=== PATIENT | male | born 1945 | race Caucasian/White ===

== ENCOUNTER → 2021-03-25 09:37 | Outpatient (CLI) | payer MEDICARE, OTHER, SELFPAY ==
[2021-03-25 10:26] LABS: COVID19 -Nasal RAPID Negative (Negative)
== END ==
PROVIDERS: Referring Provider Student in an Organized Health Care Education/Training Program; Visit Provider Student in an Organized Health Care Education/Training Program
DX: Z20.822 Contact with and (suspected) exposure to COVID-19 (principal)
CPT/HCPCS: 87635

== ENCOUNTER → 2022-01-22 11:32 | Outpatient (CLI) | payer MEDICARE, OTHER, SELFPAY ==
--- NOTE | 2022-01-22 11:35 | DI.RAD.S_ITS ---
PROCEDURE: XR CHEST 2V INDICATIONS: chest heaviness TECHNIQUE: 2 views of the chest were acquired. COMPARISON: None. FINDINGS: Surgical changes and devices: None. Lungs and pleura: Lungs are clear. No pleural effusions or pneumothorax. Mediastinum: Mediastinal contours are normal. Heart size is normal. Bones and chest wall: No suspicious bony abnormalities. Soft tissues appear unremarkable. IMPRESSION: No evidence for active disease in the chest. Dictated by: Jin Muniz M.D. on 01/22/2022 at 12:03 Approved by: Jin Muniz M.D. on 01/22/2022 at 12:03
== END ==
PROVIDERS: Referring Provider Registered Nurse; Visit Provider Registered Nurse
DX: R05.9 Cough, unspecified (principal)
CPT/HCPCS: 71046

== ENCOUNTER → 2023-02-23 10:51 | Outpatient (CLI) | payer MEDICARE, OTHER, SELFPAY | PROVIDERS: Visit Provider Physician Assistant | DX: R30.0 Dysuria (principal) | CPT/HCPCS: 87077; 87086; 87186 ==

== ENCOUNTER 2024-11-27 10:29 | Emergency (ER) | payer MEDICARE, OTHER, SELFPAY ==
[2024-11-27] VITALS (8 sets, daily range): BP systolic 146–186; BP diastolic 71–84; PULSE 62–72; RESP 12–19; TEMP 36.6; O2SAT 95–98; BMI 28.7
--- NOTE | 2024-11-27 10:42 | DI.CT.S_ITS ---
PROCEDURE: CT STROKE INDICATIONS: left sided numbness on Xarelto TECHNIQUE: Noncontrast 4.5 mm thick angled axial sections acquired from the foramen magnum to the vertex, with coronal reformats. For radiation dose reduction, the following was used: automated exposure control, adjustment of mA and/or kV according to patient size. COMPARISON: None. FINDINGS: Image quality: Diagnostic. CSF spaces: Basal cisterns are patent. No extra-axial fluid collections. The ventricles are symmetric in size and shape. Brain: No intracranial bleeds or mass effect. There is cerebral volume loss, with resultant ventricular and sulcal prominence. There are periventricular and deep white matter chronic small vessel ischemic changes. There is intracranial internal carotid artery atherosclerosis. Skull and face: Calvarium and visualized facial bones appear intact, without suspicious lesions. Sinuses: Visualized sinuses and mastoids are clear. IMPRESSION: No acute intracranial pathology. Comment: Findings were discussed with Dr. Le on 11/27/2024 at 1057 hours This study fulfills neurological imaging criteria for inclusion or exclusion of acute stroke therapies based on available published neurological guidelines. Dictated by: Onur Odom M.D. on 11/27/2024 at 10:55 Approved by: Onur Odom M.D. on 11/27/2024 at 10:58
--- NOTE | 2024-11-27 10:42 | EKG_ITS ---
[place] [id number] [place] [id number] Test Date: 2024-11-27 Pat Name: Paulie Kan Department: [facility] Room: Gender: Male Communications Department Chair: RADHA : 1945 Requested By: Order Number: [id number] Reading MD: Ja Beltran MD Measurements Intervals [place] Rate: 72 P: 123 PA: 282 QRS: 10 QRSD: 136 T: 268 QT: 444 QTc: 486 Interpretive Statements Unusual P axis, possible ectopic atrial rhythm with undetermined rhythm irregularity Right bundle branch block Minimal voltage criteria for LVH, may be normal variant ( Sokolow-Marion ) T wave abnormality, consider inferolateral ischemia NO PRIOR TRACING Electronically Signed On 11-27-2024 15:07:53 PDT by Ja Beltran MD
--- NOTE | 2024-11-27 10:42 | DI.CT.S_ITS ---
PROCEDURE: CT ANGIO HEAD AND NECK INDICATIONS: left sided numbness on Xarelto TECHNIQUE: After the administration of intravenous contrast, 1 mm thick sections acquired from the aortic arch through the [place]. 3-dimensional klvbggp-ajrsfktjh-ajnwmphlbh (MIP) and/or volume rendering reformats were acquired of the central intracranial vasculature and neck separately. For radiation dose reduction, the following was used: automated exposure control, adjustment of mA and/or kV according to patient size. COMPARISON: None. FINDINGS: Image quality: Diagnostic. Cerebral CT Angiogram: Internal carotid arteries: No acute findings. Intracranial ICA are patent with no significant stenosis. Mild chronic calcification of the distal left cervical segment. No occlusion. No aneurysm. Anterior cerebral arteries: Hypoplastic right A1 segment, normal variant. A2 arises from the left. No significant stenosis. No occlusion. No aneurysm. Middle cerebral arteries: Unremarkable. No significant stenosis. No occlusion. No aneurysm. Posterior cerebral arteries: Hypoplastic right P1 segment. P2 arises from the right posterior communicating artery, normal variant. No significant stenosis. No occlusion. No aneurysm. Basilar artery: Unremarkable. No significant stenosis. No occlusion. No aneurysm. Vertebral arteries: Unremarkable as visualized. Dural venous sinuses: Unremarkable given phase of enhancement. Other: Arterial phase appearance of the brain parenchyma is unremarkable. Neck CT Angiogram: Internal carotid arteries: Tortuous distal internal carotid artery courses bilaterally. Rzal-oi-imxzhwlt mixed calcified and noncalcified plaque at bilateral carotid bulbs and bilateral ICA origins. Noncalcified narrowing of the mid segment of the right ICA near a focus of tortuosity. This is estimated to be less than 50%. Common carotid arteries: Mild calcified narrowing at the common carotid artery origins, left slightly greater than right without measurable stenosis. No dissection or occlusion. External carotid arteries: Unremarkable. No occlusion. Vertebral arteries: Unremarkable. No significant stenosis. No dissection or occlusion. Aortic Arch and Mediastinum: Partially visualized aortic arch unremarkable without evidence of aneurysm. Moderate calcification. Other: Arterial phase soft tissues of the neck and chest are unremarkable. IMPRESSION: No significant intracranial arterial abnormality is seen. No significant abnormality is seen within the arteries of the neck. Fqgb-fd-jmmhoimz atherosclerotic plaque at the bilateral ICA origins and noncalcified possible narrowing of the mid right ICA segment. Any quantitative measurements of stenosis were performed using NASCET criteria. Dictated by: Emerita Rushing M.D. on 11/27/2024 at 11:13 Approved by: Emerita Rushing M.D. on 11/27/2024 at 11:25
--- NOTE | 2024-11-27 10:50 | ED.NEUROSD ---
HPI - Neuro Symptoms/Deficit General Chief Complaint: Neuro Symptoms/Deficit Stated Complaint: Left arm and left leg numbness 1 hour ago Time Seen by Provider: 11/27/24 10:41 History of Present Illness HPI Narrative: Patient is a 79-year-old male history of atrial fibrillation on Xarelto prior stroke in 2013 presenting today with left-sided numbness. Last known well was at about sign 30. He woke up and came in from outside and just felt like left arm leg and face were numb. No significant weakness. says that his stroke he actually had facial droop difficulty speaking and actual weakness. He denies any chest pain palpitations or other symptoms. He reports that symptoms have completely resolved at this time. He also states symptoms only lasted 5 minutes and he is currently back to his normal self Related Data Home Medications ?Medication ?Instructions ?Recorded ?Confirmed rivaroxaban 20 mg tablet (Xarelto) 20 mg PO DAILY 03/25/21 11/27/24 atorvastatin PO 11/07/21 11/27/24 losartan PO 11/07/21 11/27/24 metoprolol succinate PO 11/07/21 11/27/24 omeprazole PO 11/07/21 11/27/24 Previous Rx's ?Medication ?Instructions ?Recorded benzonatate 200 mg capsule 200 mg PO BID PRN cough #28 caps 05/21/23 fluticasone propionate 50 1 spray intranasal Q12H #16 grams 05/21/23 mcg/actuation nasal spray,suspension (Flonase Allergy Relief) Allergies Allergy/AdvReac Type Severity Reaction Status Date / Time No Known Drug Allergies Allergy Verified 11/27/24 10:34 Patient History Social History Smoking Status: Former smoker Exam Initial Vital Signs Initial Vital Signs: Vital Signs Temperature 97.9 F 11/27/24 10:30 Pulse Rate 72 11/27/24 10:30 Respiratory Rate 18 11/27/24 10:30 Blood Pressure 186/82 H 11/27/24 10:30 Pulse Oximetry 95 11/27/24 10:30 Oxygen Delivery Method Room Air 11/27/24 10:30 GENERAL: Alert well-appearing 79-year-old male and in no acute distress. HEENT: Head atraumatic,EOMI, pupils reactive, face symmetric, moist mucous membranes CARDIOVASCULAR: Irregular no murmur RESPIRATORY: Breath sounds equal bilaterally, no wheezes rales or rhonchi. ABDOMEN: Soft, nontender. Normoactive bowel sounds all 4 quadrants. No guarding or rebound. EXTREMITIES: Normal range of motion, no clubbing or edema. Neurovascularly intact NEUROLOGICAL: Alert and oriented x4.Normal gait and speech. Cranial nerves II through XII grossly intact. Good xrqayg-uw-afit, good pnbl-az-tjfn, strength equal bilaterally, no dysarthria or aphasia, sensation in tact to soft touch bilaterally, no visual changes, no facial droop SKIN: Warm, dry, no laceration, no petechiae, no rashes or lesions. Scores NIH Stroke Scale Level of Conciousness: Alert, keenly responsive Ask month/age: Answers both questions correctly. Open/close eyes, close hand: Performs both tasks correctly Best gaze horizontal: Normal Visual llamas: No visual loss Facial palsy: Normal symetrical movement Left arm drift: No drift for full 10 sec Right arm drift: No drift for full 10 sec Left leg drift: No drift for full 5 sec Right leg drift: No drift for full 5 sec Limb ataxia: Absent Sensory on face/arms/legs: Normal, no sensory loss Best language: No aphasia, normal Dysarthria: Normal Extinction or inattention: No abnormality Total NIH Stroke scale score: 0 Course Orders Ordered: ED Orders 11/27/24 10:[address] angio head and neck Stat Comprehensive Metabolic Panel Stat Ethanol (ETOH) Stat Troponin & CK Cardiac Panel Stat EKG-12 Lead Stat 11/27/24 10:45 Complete Blood Count AUTO DIFF Stat PTT Partial Thromboplastin Mo Stat Prothrombin Time INR Stat 11/27/24 11:40 COVID19 -Nasal RAPID Stat Urinalysis and Microscopic Stat Urine Drug Screen, Rapid Stat 11/27/24 11:58 MR head/brain wo con Stat Vital Signs Vital signs: Vital Signs - 8 hr 11/27/24 10:30 11/27/24 10:59 11/27/24 11:00 Temperature 97.9 F Pulse Rate 72 67 Respiratory Rate 18 12 Blood Pressure 186/82 H 175/84 H Pulse Oximetry 95 97 Oxygen Delivery Method Room Air 11/27/24 11:00 11/27/24 11:08 11/27/24 11:30 Temperature Pulse Rate 68 64 66 Respiratory Rate 12 16 19 Blood Pressure Pulse Oximetry 97 96 Oxygen Delivery Method 11/27/24 11:30 11/27/24 11:42 11/27/24 11:42 Temperature Pulse Rate 62 Respiratory Rate 18 Blood Pressure 146/79 H 179/77 H Pulse Oximetry 98 Oxygen Delivery Method 11/27/24 12:00 11/27/24 12:01 11/27/24 12:01 Temperature Pulse Rate 63 63 Respiratory Rate 17 19 Blood Pressure 151/71 H Pulse Oximetry 96 97 Oxygen Delivery Method MDM - Neuro Symptoms/Deficit Lab Data 11/27/24 10:45 11/27/24 10:42 Labs: Lab Results 11/27/24 11/27/24 11/27/24 Range/Units 10:42 10:45 11:40 WBC 5.4 (4.5-11.0) X10^3/uL RBC 4.94 (4.5-5.9) X10^6/uL Hgb 14.5 (13.5-17.5) g/dL Hct 42.5 (41-53) % MCV 86.0 (80-100) fL MCH 29.3 (26-34) PG MCHC 34.1 (30-36) % RDW 14.9 H (11.6-14.8) % Plt Count 209 (150-400) X10^3/uL Neut % (Auto) 72.7 (50-75) % Lymph % (Auto) 13.0 L (25-40) % [place] % (Auto) 11.5 (3-14) % Eos % (Auto) 2.1 (2-4) % Baso % (Auto) 0.7 (0-2) % Neut # (Auto) 4000 (2625-0194) /uL Lymph # (Auto) 700 L (0788-3381) /uL [place] # (Auto) 600 (0-900) /uL Eos # (Auto) 100 (0-450) /uL Baso # (Auto) 0 (0-100) /uL PT 20.2 H (9.4-12.5) SECONDS INR 1.8 H (0.9-1.3) APTT 37 H (25.1-36.5) SECONDS Sodium 139 (137-145) mmol/L Potassium 3.9 (3.4-5.1) mmol/L Chloride 101 (98-107) mmol/L Carbon Dioxide 26 (22-32) mmol/L BUN 13 (9-20) mg/dL Creatinine 0.89 (0.66-1.25) mg/dL Estimated GFR > 60 (>60) mL/min BUN/Creatinine Ratio 14.6 (6-22) Glucose 102 H (70-99) mg/dL POC Whole Bld Glucose 96 (70-99) mg/dL Calcium 9.3 (8.4-10.2) mg/dL Total Bilirubin 1.1 (0.2-1.3) mg/dL AST 28 (17-59) IU/L ALT 20 (<50) IU/L Alkaline Phosphatase 58 (38-126) U/L Total Creatine Kinase 36 L (55-170) U/L Troponin I < 0.012 (0.01-0.034) ng/mL Total Protein 8.0 (6.3-8.2) g/dL Albumin 4.6 (3.5-5.0) g/dL Globulin 3.4 (1.7-4.1) g/dL Albumin/Globulin Ratio 1.4 (1.0-2.8) Urine Color Yellow Urine Appearance Clear Urine pH 5.5 (4.5-8.0) Ur Specific [place] <=1.005 (1.000-1.035) Urine Protein Negative (Negative) Urine Glucose (UA) 2+ H (Negative) g/dL Urine Ketones Negative (NEGATIVE) Urine Occult Blood Negative (Negative) Urine Nitrate Negative (Negative) Urine Bilirubin Negative (NEGATIVE) Urine Urobilinogen 0.2 (0.2) E.U./dL Ur Leukocyte Esterase Negative (NEGATIVE) Urine RBC None seen (0-5/HPF) Urine WBC None seen (0-5/HPF) Ur Squamous Epith Cells None seen (0-5/HPF) Urine Bacteria None seen (None) Ur Culture Indicated? Cult not indicated Vol Urine Centrifuged 10ml (spun) U Opiates 300ng/mL cut Negative (Negative) Ur Oxycodone Screen Negative (Negative) Urine Methadone Screen Negative (Negative) Ur Barbiturates Screen Negative (Negative) U Tricyclic Antidepress Negative (Negative) Ur Phencyclidine Scrn Negative (Negative) Ur Amphetamines Screen Negative (Negative) U Methamphetamines Scrn Negative (Negative) Ur MDMA Scrn (Ecstasy) Negative (Negative) U Benzodiazepines Scrn Negative (Negative) Urine Cocaine Screen Negative (Negative) U Marijuana (THC) Screen Negative (Negative) Urine Specific [place] (Normal) Ethyl Alcohol < 10 (<10) mg/dL Ur Creatinine (Normal) SARS-CoV-2 (PCR) (Negative) 11/27/24 Range/Units 11:40 WBC (4.5-11.0) X10^3/uL RBC (4.5-5.9) X10^6/uL Hgb (13.5-17.5) g/dL Hct (41-53) % MCV (80-100) fL MCH (26-34) PG MCHC (30-36) % RDW (11.6-14.8) % Plt Count (150-400) X10^3/uL Neut % (Auto) (50-75) % Lymph % (Auto) (25-40) % [place] % (Auto) (3-14) % Eos % (Auto) (2-4) % Baso % (Auto) (0-2) % Neut # (Auto) (5829-3663) /uL Lymph # (Auto) (4137-8955) /uL [place] # (Auto) (0-900) /uL Eos # (Auto) (0-450) /uL Baso # (Auto) (0-100) /uL PT (9.4-12.5) SECONDS INR (0.9-1.3) APTT (25.1-36.5) SECONDS Sodium (137-145) mmol/L Potassium (3.4-5.1) mmol/L Chloride (98-107) mmol/L Carbon Dioxide (22-32) mmol/L BUN (9-20) mg/dL Creatinine (0.66-1.25) mg/dL Estimated GFR (>60) mL/min BUN/Creatinine Ratio (6-22) Glucose (70-99) mg/dL POC Whole Bld Glucose (70-99) mg/dL Calcium (8.4-10.2) mg/dL Total Bilirubin (0.2-1.3) mg/dL AST (17-59) IU/L ALT (<50) IU/L Alkaline Phosphatase (38-126) U/L Total Creatine Kinase (55-170) U/L Troponin I (0.01-0.034) ng/mL Total Protein (6.3-8.2) g/dL Albumin (3.5-5.0) g/dL Globulin (1.7-4.1) g/dL Albumin/Globulin Ratio (1.0-2.8) Urine Color Urine Appearance Urine pH Normal (4.5-8.0) Ur Specific [place] (1.000-1.035) Urine Protein (Negative) Urine Glucose (UA) (Negative) g/dL Urine Ketones (NEGATIVE) Urine Occult Blood (Negative) Urine Nitrate (Negative) Urine Bilirubin (NEGATIVE) Urine Urobilinogen (0.2) E.U./dL Ur Leukocyte Esterase (NEGATIVE) Urine RBC (0-5/HPF) Urine WBC (0-5/HPF) Ur Squamous Epith Cells (0-5/HPF) Urine Bacteria (None) Ur Culture Indicated? Vol Urine Centrifuged U Opiates 300ng/mL cut (Negative) Ur Oxycodone Screen (Negative) Urine Methadone Screen (Negative) Ur Barbiturates Screen (Negative) U Tricyclic Antidepress (Negative) Ur Phencyclidine Scrn (Negative) Ur Amphetamines Screen (Negative) U Methamphetamines Scrn (Negative) Ur MDMA Scrn (Ecstasy) (Negative) U Benzodiazepines Scrn (Negative) Urine Cocaine Screen (Negative) U Marijuana (THC) Screen (Negative) Urine Specific [place] Normal (Normal) Ethyl Alcohol (<10) mg/dL Ur Creatinine Normal (Normal) SARS-CoV-2 (PCR) Negative (Negative) Point of Care Testing Glucose POC [address] scan - head: Radiologist's Impression: PROCEDURE: CT STROKE INDICATIONS: left sided numbness on Xarelto TECHNIQUE: Noncontrast 4.5 mm thick angled axial sections acquired from the foramen magnum to the vertex, with coronal reformats. For radiation dose reduction, the following was used: automated exposure control, adjustment of mA and/or kV according to patient size. COMPARISON: None. FINDINGS: Image quality: Diagnostic. CSF spaces: Basal cisterns are patent. No extra-axial fluid collections. The ventricles are symmetric in size and shape. Brain: No intracranial bleeds or mass effect. There is cerebral volume loss, with resultant ventricular and sulcal prominence. There are periventricular and deep white matter chronic small vessel ischemic changes. There is intracranial internal carotid artery atherosclerosis. Skull and face: Calvarium and visualized facial bones appear intact, without suspicious lesions. Sinuses: Visualized sinuses and mastoids are clear. IMPRESSION: No acute intracranial pathology. Comment: Findings were discussed with Dr. Le on 11/27/2024 at 1057 hours This study fulfills neurological imaging criteria for inclusion or exclusion of acute stroke therapies based on available published neurological guidelines. Dictated by: Onur Odom M.D. on 11/27/2024 at 10:55 CTA - brain/neck: Radiologist's Impression: PROCEDURE: CT ANGIO HEAD AND NECK INDICATIONS: left sided numbness on Xarelto TECHNIQUE: After the administration of intravenous contrast, 1 mm thick sections acquired from the aortic arch through the [place]. 3-dimensional xieaefz-hlmlgnufe-gwlrbbnyia (MIP) and/or volume rendering reformats were acquired of the central intracranial vasculature and neck separately. For radiation dose reduction, the following was used: automated exposure control, adjustment of mA and/or kV according to patient size. COMPARISON: None. FINDINGS: Image quality: Diagnostic. Cerebral CT Angiogram: Internal carotid arteries: No acute findings. Intracranial ICA are patent with no significant stenosis. Mild chronic calcification of the distal left cervical segment. No occlusion. No aneurysm. Anterior cerebral arteries: Hypoplastic right A1 segment, normal variant. A2 arises from the left. No significant stenosis. No occlusion. No aneurysm. Middle cerebral arteries: Unremarkable. No significant stenosis. No occlusion. No aneurysm. Posterior cerebral arteries: Hypoplastic right P1 segment. P2 arises from the right posterior communicating artery, normal variant. No significant stenosis. No occlusion. No aneurysm. Basilar artery: Unremarkable. No significant stenosis. No occlusion. No aneurysm. Vertebral arteries: Unremarkable as visualized. Dural venous sinuses: Unremarkable given phase of enhancement. Other: Arterial phase appearance of the brain parenchyma is unremarkable. Neck CT Angiogram: Internal carotid arteries: Tortuous distal internal carotid artery courses bilaterally. Vmqf-zu-rqaljwhl mixed calcified and noncalcified plaque at bilateral carotid bulbs and bilateral ICA origins. Noncalcified narrowing of the mid segment of the right ICA near a focus of tortuosity. This is estimated to be less than 50%. Common carotid arteries: Mild calcified narrowing at the common carotid artery origins, left slightly greater than right without measurable stenosis. No dissection or occlusion. External carotid arteries: Unremarkable. No occlusion. Vertebral arteries: Unremarkable. No significant stenosis. No dissection or occlusion. Aortic Arch and Mediastinum: Partially visualized aortic arch unremarkable without evidence of aneurysm. Moderate calcification. Other: Arterial phase soft tissues of the neck and chest are unremarkable. IMPRESSION: No significant intracranial arterial abnormality is seen. No significant abnormality is seen within the arteries of the neck. Biya-iw-gqdjdxan atherosclerotic plaque at the bilateral ICA origins and noncalcified possible narrowing of the mid right ICA segment. Any quantitative measurements of stenosis were performed using NASCET criteria. Dictated by: Emerita Rushing M.D. on 11/27/2024 at 11:13 Approved by: Emerita Rushing M.D. on 11/27/2024 at 11:25 MR brain: Radiologist's Impression: PROCEDURE: MR HEAD/BRAIN WO CON INDICATIONS: left side numbness now resolved prior cva TECHNIQUE: Non-contrast axial T1 spin echo, axial T2 fast spin echo, sagittal and axial FLAIR, coronal T2 fast spin echo, axial gradient echo, axial diffusion and ADC through the brain. COMPARISON: [facility], CT, CT ANGIO HEAD AND NECK, 11/27/2024, 10:51. [facility], CT, CT STROKE, 11/27/2024, 10:51. FINDINGS: Image quality: Excellent. CSF spaces: Ventricles appear symmetric in size and shape. Basal cisterns are patent. No extra-axial fluid collections. Brain: No intracranial bleeds or mass effects. There is cerebral volume loss for age. There are mild, age-appropriate periventricular and deep white matter chronic small vessel ischemic changes. Brainstem appears normal. Diffusion-weighted images show no acute infarct. No chronic ischemic insults. Normal intravascular flow voids are present. Skull and face: Calvarial bone marrow is normal in signal. Orbits are normal. Sinuses: Sinuses and mastoids are clear. IMPRESSION: No acute intracranial process. Normal brain parenchyma for patient age. Dictated by: Onur Odom M.D. on 11/27/2024 at 13:37 ECG Data Attestation: I personally reviewed and interpreted this ECG as follows: Interpretation: Atrial fibrillation rhythm rate 72 UT interval 282 QRS 136 QTC 46 artifact noted right bundle-branch block MDM Narrative Medical decision making narrative: MDM CC: Left sided numbness Complicating co-morbidities: Atrial fibrillation on Xarelto, prior CVA no deficits Data collected from: and patient Medical records reviewed: Urgent care walk-in clinic records reviewed Differential considered: Intracranial hemorrhage CVA TIA Exam documented above, pertinent findings include: NIH is 0 awake alert appropriate irregular rhythm Lab Test results independently reviewed as above. Pertinent findings: CBC no leukocytosis no anemia No electrolyte abnormality Troponin negative Urinalysis negative Independently reviewed EKG as above Atrial fibrillation rate control Imaging studies independently reviewed: Head CT no intracranial hemorrhage CT angio no large vessel occlusion MRI no acute CVA Consultations: None Treatments: None Re-evaluations: Patient has recurrence of symptoms Discussion: Patient 79-year-old male history of CVA AFib on Xarelto presenting today with 5 minutes of left-sided numbness. He has an NIH of 0 workup in the emergency department is negative MRIs negative for acute CVA no intracranial hemorrhage in blood work is within normal limits. Discussion with patient about admission for further evaluation which he declined at this time. We did discuss that he is at higher risk for larger stroke and to return to the ED immediately if she should have any worsening or new symptoms which both he and his verbally agreed to. At this time patient would like to go which seems reasonable Discharge Plan Departure Patient Disposition: Home Clinical Impression: Numbness Instructions: DI for Transient Ischemic Attack Activity Restrictions/Additional Instructions: *You have been diagnosed with numbness possible TIA *What to do: At this time it is still possible that you had mild stroke. I do strongly recommend he follow up with your primary care provider as soon as possible. If you should have worsening symptoms or return of symptoms please return to the ER immediately for evaluation *Continue to take medications as directed *Follow up with your primary care provider in 2-3 days or call [phone] *Return to ER if you should have increasing weakness numbness tingling difficulty speaking [or] any new, worsening or concerning symptoms Prescriptions: No Action Xarelto 20 mg tablet 20 mg PO DAILY Rx Instructions: must administer with evening meal atorvastatin PO losartan PO metoprolol succinate PO omeprazole PO fluticasone propionate [Flonase Allergy Relief] 50 mcg/actuation spray,suspension 1 spray intranasal Q12H Qty: 16 0RF Rx Instructions: administer into each nostril benzonatate 200 mg capsule 200 mg PO BID PRN (Reason: cough) Qty: 28 0RF Stand Alone Forms: Patient Portal/API
[2024-11-27 10:53] LABS: Add Manual Diff / Slide Review NO; Hematocrit 42.5 % (41-53); Hemoglobin 14.5 g/dL (13.5-17.5); Lymphocytes Absolute Auto 700 /uL (1100-4500); Mean Corpuscular HGB Conc 34.1 % (30-36); Mean Corpuscular Hemoglobin 29.3 PG (26-34); Mean Corpuscular Volume 86.0 fL (80-100); Platelet Count 209 X10^3/uL (150-400)
[2024-11-27 11:03] LABS: Alanine Aminotransferase 20 IU/L (<50); Albumin 4.6 g/dL (3.5-5.0); Albumin Globulin Ratio 1.4 (1.0-2.8); Alkaline Phosphatase 58 U/L (38-126); Blood Urea Nitrogen 13 mg/dL (9-20); Calcium 9.3 mg/dL (8.4-10.2); Carbon Dioxide 26 mmol/L (22-32); Chloride 101 mmol/L (98-107); Creatine Kinase 36 U/L (55-170); Estimated Glomerular Filt Rate > 60 mL/min (>60); Ethanol (ETOH) < 10 mg/dL (<10); Globulin 3.4 g/dL (1.7-4.1); Glucose 102 mg/dL (70-99); HEMOLYSIS < 15 (0-50); Potassium 3.9 mmol/L (3.4-5.1); Sodium 139 mmol/L (137-145); Total Protein 8.0 g/dL (6.3-8.2)
[2024-11-27 11:09] LABS: INR 1.8 (0.9-1.3); Prothrombin Time 20.2 SECONDS (9.4-12.5)
[2024-11-27 11:12] LABS: PTT Partial Thromboplastin Tim 37 SECONDS (25.1-36.5)
[2024-11-27 11:15] LABS: Troponin I < 0.012 ng/mL (0.01-0.034)
[2024-11-27 11:49] LABS: Ur Creatinine Normal (Normal); Ur Specific Gravity Normal (Normal); Urine MDMA Negative (Negative); Urine Methamphetamines Negative (Negative); Urine THC Negative (Negative); Urine pH Normal (Normal)
[2024-11-27 11:50] LABS: Urine Tricyclic Antidepressant Negative (Negative)
--- NOTE | 2024-11-27 11:58 | DI.MRI.S_ITS ---
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 COMPARISON: [facility], CT, CT ANGIO HEAD AND NECK, 11/27/2024, 10:51. [facility], CT, CT STROKE, 11/27/2024, 10:51. FINDINGS: Image quality: Excellent. CSF spaces: Ventricles appear symmetric in size and shape. Basal cisterns are patent. No extra-axial fluid collections. Brain: No intracranial bleeds or mass effects. There is cerebral volume loss for age. There are mild, age-appropriate periventricular and deep white matter chronic small vessel ischemic changes. Brainstem appears normal. Diffusion-weighted images show no acute infarct. No chronic ischemic insults. Normal intravascular flow voids are present. Skull and face: Calvarial bone marrow is normal in signal. Orbits are normal. Sinuses: Sinuses and mastoids are clear. IMPRESSION: No acute intracranial process. Normal brain parenchyma for patient age. Dictated by: Onur Odom M.D. on 11/27/2024 at 13:37 Approved by: Onur Odom M.D. on 11/27/2024 at 13:38
[2024-11-27 12:13] LABS: COVID19 -Nasal RAPID Negative (Negative)
[2024-11-27 12:17] LABS: Appearance Urine UA CLEAR; Bilirubin Urine UA NEGATIVE (NEGATIVE); Color Urine UA YELLOW; Glucose Urine UA 2+ g/dL (Negative); Ketones Urine UA NEGATIVE (NEGATIVE); Leukocyte Esterase Urine UA NEGATIVE (NEGATIVE); Nitrite Urine UA NEGATIVE (Negative); Occult Blood Urine UA NEGATIVE (Negative); Protein Urine UA NEGATIVE (Negative); Specific Gravity Urine UA <=1.005 (1.000-1.035); Urobilinogen Urine UA 0.2 E.U./dL (0.2); pH Urine UA 5.5 (4.5-8.0)
[2024-11-27 12:28] LABS: Culture Indicated Urine Cult Not Indicated
== END 2024-11-27 14:01 | disposition home or self-care (01) ==
PROVIDERS: Emergency Provider Emergency Medicine
DX: R20.0 Anesthesia of skin (principal); R29.810 Facial weakness; Z79.01 Long term (current) use of anticoagulants; Z86.73 Personal history of transient ischemic attack (TIA), and cerebral infarction without residual deficits; R29.700 NIHSS score 0
CPT/HCPCS: 36415; 70450; 70496; 70498; 70551; 80053; 80305; 80320; 81001; 82550; 82962; 84484; 85025; 85610; 85730; 87635; 93005; 93010; 99284; Q9967